=== PATIENT | male | born 1975 | race Caucasian/White ===

== ENCOUNTER 2024-08-05 07:07 | Outpatient (OUT) | payer OTHER, SELFPAY | END 2024-08-05 07:08 | disposition home or self-care (01) | LOC: SLEEP 07:07 | PROVIDERS: PCP Internal Medicine; Visit Provider Internal Medicine | DX: G47.33 Obstructive sleep apnea (adult) (pediatric) (principal) | CPT/HCPCS: 95810 ==

== ENCOUNTER 2024-08-20 06:51 | Outpatient (OUT) | payer OTHER, SELFPAY | END 2024-08-20 06:52 | disposition home or self-care (01) | LOC: SLEEP 06:51 | PROVIDERS: PCP Internal Medicine; Visit Provider Internal Medicine | DX: G47.33 Obstructive sleep apnea (adult) (pediatric) (principal); G47.11 Idiopathic hypersomnia with long sleep time | CPT/HCPCS: 95811 ==